=== PATIENT | male | born 1960 | race Two or more races ===

== ENCOUNTER 2021-02-13 11:08 | Outpatient (RCR) | payer OTHER | END 2021-02-27 | LOC: PT 11:08 | PROVIDERS: ATTEND Physician Assistant | DX: M75.82 Other shoulder lesions, left shoulder (principal) ==

== ENCOUNTER → 2021-03-20 | Outpatient (CLI) | payer OTHER | LOC: MRI 12:37 | PROVIDERS: ATTEND Physician Assistant | DX: M75.82 Other shoulder lesions, left shoulder (principal) ==

== ENCOUNTER 2021-03-27 09:54 | Outpatient (RCR) | payer OTHER | END 2021-03-30 | LOC: PT 09:54 | PROVIDERS: ATTEND Physician Assistant | DX: M75.82 Other shoulder lesions, left shoulder (principal); M62.81 Muscle weakness (generalized); M25.512 Pain in left shoulder; M25.612 Stiffness of left shoulder, not elsewhere classified | CPT/HCPCS: 97139 ==

== ENCOUNTER 2021-04-28 09:57 | Outpatient (RCR) | payer OTHER | END 2021-04-29 | LOC: PT 09:57 | PROVIDERS: ATTEND Physician Assistant | DX: M75.82 Other shoulder lesions, left shoulder (principal); M25.512 Pain in left shoulder; M25.612 Stiffness of left shoulder, not elsewhere classified; M62.81 Muscle weakness (generalized) | CPT/HCPCS: 97139 ==

== ENCOUNTER → 2021-05-30 | Outpatient (RCR) | payer OTHER ==
[~2021-05-30] MED LIST: HYOSCYAMINE SULFATE 0.5 MG/ML INJ ONE
== END ==
LOC: PT 05-05 11:02
PROVIDERS: ATTEND Physician Assistant
DX: M75.82 Other shoulder lesions, left shoulder (principal); M77.8 Other enthesopathies, not elsewhere classified; M25.512 Pain in left shoulder; M25.612 Stiffness of left shoulder, not elsewhere classified; M62.81 Muscle weakness (generalized)
CPT/HCPCS: 97110 ×4; 97139; 97140 ×4; J1980

== ENCOUNTER 2021-06-10 09:50 | Outpatient (RCR) | payer OTHER | END 2021-06-30 | LOC: PT 09:50 | PROVIDERS: ATTEND Physician Assistant | DX: M75.82 Other shoulder lesions, left shoulder (principal); M62.81 Muscle weakness (generalized); M25.512 Pain in left shoulder; M25.612 Stiffness of left shoulder, not elsewhere classified | CPT/HCPCS: 97139 ==